=== PATIENT | male | born 1990 | race Caucasian/White ===

== ENCOUNTER 2019-02-20 16:24 | Emergency (ER) | payer OTHER ==
[~2019-02-20] VITALS: Ht 175.2 cm; Wt 77.1 kg
[~2019-02-20 16:24] MED LIST: BACTRIM DS 8001 TAB PO; BENADRYL ALLERG25 M5 PO; FLEXERIL5 MG PO; KEFLEX500 M1 PO; MOTRIN800 MG PO; NAPROSYN500 MG PO; NKHM; PREDNISONE10 MG PO; TRAMADOL HCL50 MG PO; [UNRECOGNIZED DRUG - OTHER] PO
== END 2019-02-20 17:32 | disposition home or self-care (01) ==
LOC: ED 16:24
DX: S91.332A Puncture wound without foreign body, left foot, initial encounter (principal); Z79.2 Long term (current) use of antibiotics; Z79.899 Other long term (current) drug therapy; W22.8XXA Striking against or struck by other objects, initial encounter; Y93.01 Activity, walking, marching and hiking; Y92.89 Other specified places as the place of occurrence of the external cause; Y99.8 Other external cause status

== ENCOUNTER 2022-08-10 05:36 | Emergency (ER) | payer OTHER ==
[~2022-08-10] VITALS: Ht 172.7 cm; Wt 77.1 kg
== END 2022-08-10 06:09 | disposition home or self-care (01) ==
LOC: ED 05:36
DX: S05.01XA Injury of conjunctiva and corneal abrasion without foreign body, right eye, initial encounter (principal); H10.9 Unspecified conjunctivitis; Z88.8 Allergy status to other drugs, medicaments and biological substances; X58.XXXA Exposure to other specified factors, initial encounter; Y93.89 Activity, other specified; Y92.89 Other specified places as the place of occurrence of the external cause; Y99.8 Other external cause status